=== PATIENT | male | born 1990 | race Asian ===

== ENCOUNTER → 2022-10-02 | Emergency (ER) | payer MEDICAID ==
[~2022-10-02] VITALS: Ht 160 cm; Wt 0.5 kg
[~2022-10-02] MED LIST: BACITRACIN 1 GM OINT TP ONE; DIPHTH,PERTUSS(ACELL),TET VAC 0.5 ML VIAL (Tdap) I.M. ONE; LIDOCAINE 1% 10 MG/ML, 20 ML MDV INJ ONE
[2022-10-02 21:32] VITALS: BP_SYST 159
--- NOTE | 2022-10-02 22:00 | NUR ---
Pt placed to ER chair 2 with c/o ~1.5 lac to tip of left finger. Pt states that he accidently cut his finger with a knife. No active bleeding noted.
--- NOTE | 2022-10-02 22:30 | NUR ---
Dr. Perez assessing pt.
--- NOTE | 2022-10-02 22:40 | NUR ---
Wound cleansed with NS and betadine. Wound covered with sterile gauge dsg and Kerlex. Cap refil < 3 sec to nail bed.
[2022-10-02 23:10] VITALS: BP_SYST 128
--- NOTE | 2022-10-02 23:10 | NUR ---
Patient given written and verbal discharge instructions and verbalizes understanding. ER MD discussed with patient the results and treatment provided. Patient in stable condition. ID arm band removed. No Rx given. Patient educated on pain management and to follow up with PMD. Pain Scale 0/10. Opportunity for questions provided and answered. Medication side effect fact sheet provided.
== END | disposition home or self-care (01) ==
LOC: SED 21:27
DX: S61.215A Laceration without foreign body of left ring finger without damage to nail, initial encounter (principal); Z79.899 Other long term (current) drug therapy; W26.0XXA Contact with knife, initial encounter; Y93.89 Activity, other specified; Y92.89 Other specified places as the place of occurrence of the external cause; Y99.8 Other external cause status
CPT/HCPCS: 90715; 99283